=== PATIENT | female | born 1950 | race African-American/Black ===

== ENCOUNTER 2016-12-10 11:37 | Inpatient (IN) | payer OTHER ==
[2016-12-10 14:13] VITALS: BMI 32.2
--- NOTE | 2016-12-10 15:25 | HP ---
CIWA Score - CIWA Score Nausea/Vomitin Muscle Tremors: 3 Anxiety: 3 Agitation: 3 Paroxysmal Sweats: 3 Orientation: 0-Oriented Tacttile Disturbances: 2-Mild Itch/Numbness/Burn Auditory Disturbances: 2-Mild Harshness/Frighten Visual Disturbances: 0-None Headache: 2-Mild CIWA-Ar Total Score: 21 Admission ROS BHS - HPI Chief Complaint: i need help to stop using klonopin Allergies/Adverse Reactions: Allergies Allergy/AdvReac Type Severity Reaction Status Date / Time No Known Allergies Allergy Verified 12/10/16 15:16 History of Present Illness: this 66 years old black female with klonopin dependence ,seeking detox,last detox 1969 did not recall facility mmtp 150 mgs/day,last today 12/10/16 hepatitis c treated asthma type 2 dm longest period of sobriety 10 years Exam Limitations: No Limitations - Ebola screening Have you traveled outside of the country in the last 21 days: No Have you had contact with anyone from an Ebola affected area: No Have you been sick,other than usual withdrawal symptoms: No Do you have a fever: No - Review of Systems Constitutional: Loss of Appetite, Malaise, Night Sweats, Changes in sleep, Weakness EENT: reports: Tearing, Nose Congestion Respiratory: reports: No Symptoms reported, Other (asthma history) Cardiac: reports: No Symptoms Reported GI: reports: Diarrhea, Nausea, Vomiting, Abdominal cramping : reports: No Symptoms Reported Musculoskeletal: reports: Back Pain, Joint Pain, Muscle Pain, Joint Stiffness Integumentary: reports: Dryness Neuro: reports: Headache, Tremors Endocrine: reports: No Symptoms Reported Hematology: reports: No Symptoms Reported Psychiatric: reports: Agitated, Depressed Patient History - Patient Medical History Hx Anemia: No Hx Asthma: Yes (on albuterol inhaler) Hx Chronic Obstructive Pulmonary Disease (COPD): No Hx Cancer: No Hx Cardiac Disorders: No Hx Congestive Heart Failure: No Hx Hypertension: No Hx Hypercholesterolemia: No Hx Pacemaker: No HX Cerebrovascular Accident: No Hx Seizures: No Hx Dementia: No Hx Diabetes: Yes (type 2 on metfomin 500 mgs po bid) Hx Gastrointestinal Disorders: No Hx Liver Disease: Yes (hepatitis c treated) Hx Genitourinary Disorders: No Hx Sexually Transmitted Disorders: No Hx Renal Disease (ESRD): No Hx Thyroid Disease: No Hx Human Immunodeficiency Virus (HIV): No (last 11/02 negative) Hx Hepatitis C: Yes (treated) Hx Depression: No Hx Suicide Attempt: No Hx Bipolar Disorder: No Hx Schizophrenia: No Other Medical History: no suicidal ,no homicidal - Patient Surgical History Past Surgical History: Yes Hx Section: Yes (23 years ago) - PPD History Previous Implant?: Yes Documented Results: Negative w/o proof PPD to be Administered?: Yes - Reproductive History Patient is a Female of Child Bearing Age (11 -55 yrs old): No - Smoking Cessation Smoking history: Current every day smoker Have you smoked in the past 12 months: Yes Aproximately how many cigarettes per day: 3 Cigars Per Day: 0 Hx Chewing Tobacco Use: No Initiated information on smoking cessation: Yes 'Breaking Loose' booklet given: 12/10/16 - Substance & Tx. History Hx Alcohol Use: No Hx Substance Use: Yes Substance Use Type: Tranquilizers Hx Substance Use Treatment: Yes (in 1970 facility unknown) - Substances Abused Benzodiazepine (Klonopin) Route: Oral Frequency: Daily Amount used: 4mg Age of first use: 64 Date of Last Use: 12/09/16 Family Disease History - Family Disease History Family History: Denies Admission Physical Exam S - Vital Signs Vital Signs: Vital Signs - 24 hr 12/10/16 14:10 Temperature 97 F L Pulse Rate 67 Respiratory 20 Rate Blood Pressure 140/90 - Physical General Appearance: Yes: Moderate Distress, Tremorous, Irritable, Sweating, Anxious HEENTM: Yes: Normal ENT Inspection, DERREK, Pharynx Normal Respiratory: Yes: Within Normal Limits, Lungs Clear, Normal Breath Sounds Neck: Yes: Within Normal Limits, Supple, Trachea in good position Breast: Yes: Breast Exam Deferred Cardiology: Yes: Within Normal Limits, Regular Rhythm, Regular Rate, S1, S2 Abdominal: Yes: Within Normal Limits, Normal Bowel Sounds, Non Tender, Soft Genitourinary: Yes: Within Normal Limits Back: Yes: Muscle Spasm Musculoskeletal: Yes: full range of Motion, Back pain, Muscle Pain Extremities: Yes: Tremors Neurological: Yes: Within Normal Limits, real estate sales associate II-XII NML intact, Alert, Motor Strength 5/5 Integumentary: Yes: Dry Lymphatic: Yes: Within Normal Limits - Diagnostic (1) Uncomplicated sedative, hypnotic or anxiolytic withdrawal Current Visit: Yes Status: Acute (2) Methadone use disorder, mild, on maintenance therapy Current Visit: Yes Status: Acute (3) Asthma Current Visit: Yes Status: Acute (4) Anxiety and depression Current Visit: Yes Status: Acute (5) DM type 2 (diabetes mellitus, type 2) Current Visit: Yes Status: Acute (6) Syncope Current Visit: Yes Status: Acute [facility] Level of Care: Medically Managed Detox Regimen/Protocol: Librium S Breath Alcohol Content Breath Alcohol Content: 0 Urine Pregancy Test - Result Urine Test Results: Negative- NO Line Present Urine Drug Screen - Results Drug Screen Negative: No Urine Drug Screen Results: BZO-Benzodiazepines, MTD-Methadone, TCA-Tricyclic Antidepress
[2016-12-10] MEDS ORDERED: guaiFENesin/D-METHORPHAN HB 10 ML UNIT-DOSE CUPS PO PRN (15:46)
[2016-12-10] MEDS ORDERED: MAGNESIUM CITRATE 300 ML BOTTLE PO PRN (15:46)
[2016-12-10] MEDS ORDERED: P-EPHED 60MG/TRIPROLIDI 2.5MG TABLET PO PRN (15:46)
[2016-12-10] MEDS ORDERED: diazePAM 5 MG TABLET PO PRN (15:46)
[2016-12-10] MEDS ORDERED: LOPERAMIDE HCL 2 MG CAPSULE PO PRN (15:46)
[2016-12-10] MEDS ORDERED: MAG HYDROX/AL HYDROX/SIMETH 30 ML UNIT-DOSE CUP PO PRN (15:46)
[2016-12-10] MEDS ORDERED: hydrOXYzine PAMOATE 50 MG CAPSULE (FP) PO PRN (15:46)
[2016-12-10] MEDS ORDERED: MAGNESIUM HYDROX 2400MG/30ML ORAL SUSPENSION 30 ML CUP PO PRN (15:46)
[2016-12-10] MEDS ORDERED: MENTHOL/PHENOL 1 EACH UD MM PRN (15:46)
[2016-12-10] MEDS ORDERED: diazePAM 5 MG TABLET PO ONE (17:45)
[2016-12-10] MEDS: THIAMINE HCL 100 MG TABLET (FP) PO SCH (22:10)
[2016-12-10] MEDS: diazePAM 5 MG TABLET PO SCH (22:10)
[2016-12-10 22:28] LABS: URINE APPEARANCE SLCLOUDY; URINE BILIRUBIN NEGATIVE (NEGATIVE); URINE BLOOD NEGATIVE (NEGATIVE); URINE COLOR DKYELLOW; URINE GLUCOSE (UA) NEGATIVE (NEGATIVE); URINE KETONE TRACE (NEGATIVE); URINE NITRITE NEGATIVE (NEGATIVE); URINE UROBILINOGEN NEGATIVE mg/dL (0.2-1.0)
[2016-12-10 22:33] LABS: URINE PROTEIN 1+ (NEGATIVE)
[2016-12-10 23:51] LABS: URINE BACTERIA MANY /hpf (NONE SEEN); URINE WBC FEW /hpf (3-5)
[2016-12-11] MEDS: diazePAM 5 MG TABLET PO SCH ×3 (05:55→22:15)
[2016-12-11] MEDS: ACETAMINOPHEN 325 MG TABLET (FP) PO PRN (06:07)
--- NOTE | 2016-12-11 08:14 | CONSULT ---
[facility] Psychiatric Consult - Data Date of interview: 12/11/16 Admission source: [facility] Identifying data: This is 66 years old male with unlnown past psychiatric history, intoxicated with: Alcohol and Methadone Substance Abuse History: Urine Drug Screen Results: BZO-Benzodiazepines, MTD- Methadone, TCA-Tricyclic Antidepress. - Smoking Cessation. Smoking history: Current every day smoker. Have you smoked in the past 12 months: Yes. Aproximately how many cigarettes per day: 3. Cigars Per Day: 0. Hx Chewing Tobacco Use: No. Initiated information on smoking cessation: Yes. 'Breaking Loose' booklet given: 12/10/16. - Substance & Tx. History. Hx Alcohol Use: No. Hx Substance Use: Yes. Substance Use Type: Tranquilizers. Hx Substance Use Treatment: Yes (in 1970 facility unknown) Medical History: Asthma, DM-2, Syncope history, Psychiatric History: Patient reports unclear past psychiatric history, reports no psychiatric medications taking prior to admission Physical/Sexual Abuse/Trauma History: Denies Additional Comment: Urine Drug Screen Results: BZO-Benzodiazepines, MTD- Methadone, TCA-Tricyclic Antidepress. Observation. Detox Unit Care Protocol Mental Status Exam - Mental Status Exam Alert and Oriented to: Person Cognitive Function: Fair Patient Appearance: Unkempt Mood: Sad Affect: Flat Patient Behavior: Sedated Speech Pattern: Delayed Voice Loudness: Mildly Soft/Quiet Thought Process: Circumstantial Thought Disorder: Being Controlled Hallucinations: Denies Suicidal Ideation: Denies Homicidal Ideation: Denies Insight/Judgement: Fair Sleep: Difficulty falling asleep Appetite: Weight loss Muscle strength/Tone: Mild Hypotonicity Gait/Station: Shuffling Additional Comments: Observation. Detox Unit Care Protocol Psychiatric Findings - Problem List ([place] 1, 2,3) (1) Alcohol dependence with uncomplicated withdrawal Current Visit: Yes Status: Acute (2) Anxiety and depression Current Visit: Yes Status: Acute (3) Methadone use disorder, mild, on maintenance therapy Current Visit: Yes Status: Acute (4) Uncomplicated sedative, hypnotic or anxiolytic withdrawal Current Visit: Yes Status: Acute (5) Drug-induced mood disorder Current Visit: Yes Status: Acute - Initial Treatment Plan Initial Treatment Plan: Observation. Detox Unit Care Protocol
[2016-12-11] MEDS ORDERED: METHADONE HCL 10 MG TABLET PO SCH (08:45)
--- NOTE | 2016-12-11 09:16 | PN ---
S CIWA - CIWA Score Nausea/Vomitin Muscle Tremors: 3 Anxiety: 3 Agitation: 3 Paroxysmal Sweats: 1-Minimal Palms Moist Orientation: 0-Oriented Tacttile Disturbances: 1-Very Mild Itch/Numbness Auditory Disturbances: 1-Very Mild Visual Disturbances: 1-Very Mild Sensitivity Headache: 2-Mild CIWA-Ar Total Score: 18 BHS Progress Note (SOAP) Subjective: alert,irritable,anxious,interrupted sleep,tremor,pain in the body Objective: 12/11/16 09:10 Vital Signs Temperature 96.3 F L 12/11/16 06:29 Pulse Rate 66 12/11/16 06:29 Respiratory Rate 16 12/11/16 06:29 Blood Pressure 150/78 12/11/16 06:29 O2 Sat by Pulse Oximetry (%) ekg sinus bradycardia 55/min no chest pain,no sob.no dizziness Laboratory Last Values POC Glucometer 79 UNITS (()) 12/11/16 06:05 Urine Color Dkyellow 12/10/16 22:10 Urine Appearance Slcloudy 12/10/16 22:10 Urine pH 5.0 (5.0-8.0) 12/10/16 22:10 Urine Protein 1+ (NEGATIVE) H 12/10/16 22:10 Urine Glucose (UA) Negative (NEGATIVE) 12/10/16 22:10 Urine Ketones Trace (NEGATIVE) H 12/10/16 22:10 Urine Blood Negative (NEGATIVE) 12/10/16 22:10 Urine Nitrite Negative (NEGATIVE) 12/10/16 22:10 Urine Bilirubin Negative (NEGATIVE) 12/10/16 22:10 Urine Urobilinogen Negative mg/dL (0.2-1.0) 12/10/16 22:10 Urine WBC Few /hpf (3-5) 12/10/16 22:10 Ur Epithelial Cells Few /hpf (FEW) 12/10/16 22:10 Urine Bacteria Many /hpf (NONE SEEN) 12/10/16 22:10 labs pending 12/11/16 09:16 Assessment: withdrawal symptom Plan: continue detox
[2016-12-11] MEDS ORDERED: METHADONE HCL 40 MG DISPERSABLE TABLET ONE (09:55)
[2016-12-11] MEDS ORDERED: METHADONE HCL 10 MG TABLET ONE (09:56)
[2016-12-11 10:03] LABS: MEAN CELL VOLUME 87.7 fl (80-96); MEAN PLT VOLUME 8.5 fl (7.5-11.1); PLATELET COUNT 187 K/MM3 (134-434); WHITE BLOOD COUNT 9.9 K/mm3 (4.0-10.0)
[2016-12-11] MEDS: METHADONE 120 MG, METHADONE 30 MG PO SCH (10:12)
[2016-12-11] MEDS: PRENATAL VITAMINS W/ FOLIC ACID TABLET (FP) PO SCH (10:12)
[2016-12-11 10:39] LABS: ALBUMIN 3.5 g/dl (3.4-5.0); ANION GAP 4 (8-16); CALCIUM 8.7 mg/dL (8.5-10.1); CO2 33 mmol/L (21-32); GLUCOSE,RANDOM 71 mg/dL (74-106); SGOT/AST 14 U/L (15-37)
[2016-12-11 10:44] LABS: ALK PHOS 118 U/L (45-117); BILIRUBIN,TOTAL 0.4 mg/dL (0.2-1.0); SGPT/ALT 16 U/L (12-78)
--- NOTE | 2016-12-11 10:46 | EKG ---
Test Reason : Blood Pressure : / mmHG Vent. Rate : 054 BPM Atrial Rate : 054 BPM P-R Int : 156 ms QRS Dur : 076 ms QT Int : 482 ms P-R-T Axes : 070 002 002 degrees QTc Int : 457 ms SINUS BRADYCARDIA MINIMAL VOLTAGE CRITERIA FOR LVH, MAY BE NORMAL VARIANT BORDERLINE ECG NO PREVIOUS ECGS AVAILABLE Confirmed by KIRK MORALES MD ([id number]) on 12/11/2016 10:45:49 AM Referred By: Confirmed By:KIRK MORALES MD
[2016-12-11 10:47] LABS: URINE LEUK ESTERASE 1+ (NEGATIVE)
[2016-12-11] MEDS ORDERED: PNEUMOC 13-VAL CONJ-DIP CRM/PF 0.5 ML DISP.SYRIN IM ONE (12:00)
[2016-12-11] MEDS ORDERED: PNEUMOCOCCAL 23 VACCINE 0.5 ML VIAL IM ONE (12:00)
[2016-12-11] MEDS: IBUPROFEN 400 MG TABLET (FP) PO PRN (14:02)
[2016-12-11] MEDS: THIAMINE HCL 100 MG TABLET (FP) PO SCH (22:15)
[2016-12-11] MEDS: diphenhydrAMINE HCL 50 MG CAPSULE PO PRN (22:16)
[2016-12-12] MEDS ORDERED: METHADONE HCL 40 MG DISPERSABLE TABLET ONE (04:13)
[2016-12-12] MEDS ORDERED: METHADONE HCL 10 MG TABLET ONE (04:14)
[2016-12-12] MEDS: METHADONE 120 MG, METHADONE 30 MG PO SCH (05:48)
[2016-12-12] MEDS: diazePAM 5 MG TABLET PO SCH ×2 (10:05→22:15)
[2016-12-12] MEDS: PRENATAL VITAMINS W/ FOLIC ACID TABLET (FP) PO SCH (10:06)
--- NOTE | 2016-12-12 10:32 | PN ---
BHS CIWA - CIWA Score Nausea/Vomitin Muscle Tremors: 3 Anxiety: 2 Agitation: 2 Paroxysmal Sweats: 1-Minimal Palms Moist Orientation: 0-Oriented Tacttile Disturbances: 1-Very Mild Itch/Numbness Auditory Disturbances: 1-Very Mild Visual Disturbances: 0-None Headache: 2-Mild CIWA-Ar Total Score: 15 BHS Progress Note (SOAP) Subjective: ALERT,IRRITABLE,ANXIOUS,INTERRUPTED SLEEP,TREMOR Objective: 12/12/16 10:31 Vital Signs Temperature 97.7 F 12/12/16 06:00 Pulse Rate 76 12/12/16 07:30 Respiratory Rate 18 12/12/16 07:30 Blood Pressure 125/93 12/12/16 07:30 O2 Sat by Pulse Oximetry (%) BGM IS 70 Assessment: 12/12/16 10:31 WITHDRAWAL SYMPTOM Plan: CONTINUE DETOX,BGM MONITORING
[2016-12-12] MEDS: ACETAMINOPHEN 325 MG TABLET (FP) PO PRN (19:08)
[2016-12-12] MEDS: diphenhydrAMINE HCL 50 MG CAPSULE PO PRN (22:15)
[2016-12-12] MEDS: THIAMINE HCL 100 MG TABLET (FP) PO SCH (22:15)
[2016-12-13] MEDS ORDERED: METHADONE HCL 40 MG DISPERSABLE TABLET ONE (04:39)
[2016-12-13] MEDS ORDERED: METHADONE HCL 10 MG TABLET ONE (04:40)
[2016-12-13] MEDS: METHADONE 120 MG, METHADONE 30 MG PO SCH (05:05)
[2016-12-13] MEDS: diazePAM 5 MG TABLET PO SCH ×2 (10:06→22:02)
[2016-12-13] MEDS: PRENATAL VITAMINS W/ FOLIC ACID TABLET (FP) PO SCH (10:06)
--- NOTE | 2016-12-13 10:17 | PN ---
S Progress Note (SOAP) Subjective: ALERT,IRRITABLE,ANXIOUS,INTERRUPTED SLEEP Objective: 12/13/16 10:15 Vital Signs Temperature 98.1 F 12/13/16 06:00 Pulse Rate 66 12/13/16 06:00 Respiratory Rate 18 12/13/16 06:00 Blood Pressure 145/95 12/13/16 06:00 O2 Sat by Pulse Oximetry (%) 12/13/16 10:24 GLUCOSE IS 77 Assessment: 12/13/16 10:24 WITHDRAWAL SYMPTOM Plan: CONTINUE DETOX,GLUCERNA 1 CAN PO BID,DISCHARGE IN AM
[2016-12-13] MEDS: IBUPROFEN 400 MG TABLET (FP) PO PRN (14:44)
--- NOTE | 2016-12-13 18:15 | PN ---
[facility] Progress Note Note: Psychiatry Attending's note : Asked to see this patient. Reason : insomnia. Chart reviewed. Dr Lockwood's note is appreciated. Met with the patient. Educated about sleep hygiene. Ambien 5 mg po hs prn. Side effects/benefits discussed. Patient agrees with this careplan. Nursing staff made aware.
[2016-12-13] MEDS ORDERED: ZOLPIDEM TARTRATE 5 MG TABLET PO PRN (18:16)
[2016-12-13] MEDS: THIAMINE HCL 100 MG TABLET (FP) PO SCH (22:02)
[2016-12-14] MEDS ORDERED: METHADONE HCL 10 MG TABLET ONE (04:40)
[2016-12-14] MEDS ORDERED: METHADONE HCL 40 MG DISPERSABLE TABLET ONE (04:40)
[2016-12-14] MEDS: METHADONE 120 MG, METHADONE 30 MG PO SCH (05:07)
[2016-12-14 06:21] VITALS: BP 133/79; PULSE 67; TEMP 97.7
--- NOTE | 2016-12-14 08:44 | PN ---
S Progress Note Note: ALERT,NO COMPLAINT REPEAT BGM IS 115 STABLE FOR DISCHARGE,FOLLOW UP WITH AFTER CARE PROGRAM ARRANGEMENT
--- NOTE | 2016-12-14 08:48 | DS ---
[facility] Detox Discharge Summary Admission Date: 12/10/16 Discharge Date: 12/14/16 - History Present History: Alcohol Dependence, MMTP Additional Comments: FOLLOW UP WITH AFTER CARE PROGRAM ARRANGEMENT Pertinent Past History: ASTHMA TYPE 2 DM SYNCOPE ANXIETY AND DEPRESSION - Physical Exam Results Vital Signs: Vital Signs Temperature 97.7 F 12/14/16 06:20 Pulse Rate 67 12/14/16 06:20 Respiratory Rate 18 12/14/16 06:20 Blood Pressure 133/79 12/14/16 06:20 O2 Sat by Pulse Oximetry (%) Pertinent Admission Physical Exam Findings: WITHDRAWAL SYMPTOM - Treatment Hospital Course: Detox Protocol Followed, Detoxed Safely, Responded well, Discharged Condition Good Patient has Accepted a Rehab Referral to: DECLINED - Medication Discharge Medications: Ambulatory Orders NK [No Known Home Medication] 12/10/16 - Diagnosis (1) Uncomplicated sedative, hypnotic or anxiolytic withdrawal Current Visit: Yes Status: Acute (2) Methadone use disorder, mild, on maintenance therapy Current Visit: Yes Status: Acute (3) Asthma Current Visit: Yes Status: Acute (4) Anxiety and depression Current Visit: Yes Status: Acute (5) DM type 2 (diabetes mellitus, type 2) Current Visit: Yes Status: Acute (6) Syncope Current Visit: Yes Status: Acute - AMA Did Patient Leave Against Medical Advice: No
[2016-12-14] MEDS ORDERED: diazePAM 5 MG TABLET PO SCH (10:00)
== END 2016-12-14 09:00 | disposition home or self-care (01) | DRG 773 ==
LOC: YASAS 11:37 → Y6N 17:12
PROVIDERS: ADMIT Internal Medicine; ATTEND Internal Medicine
PROC: HZ2ZZZZ Detoxification Services for Substance Abuse Treatment (ICD-10-PCS; principal; 2016-12-10)
DX: F13.230 Sedative, hypnotic or anxiolytic dependence with withdrawal, uncomplicated (principal); F11.20 Opioid dependence, uncomplicated; F17.210 Nicotine dependence, cigarettes, uncomplicated; F41.8 Other specified anxiety disorders; F19.24 Other psychoactive substance dependence with psychoactive substance-induced mood disorder; J45.909 Unspecified asthma, uncomplicated; E11.9 Type 2 diabetes mellitus without complications; R00.1 Bradycardia, unspecified; B18.2 Chronic viral hepatitis C; Z79.84 Long term (current) use of oral hypoglycemic drugs; Z86.79 Personal history of other diseases of the circulatory system
CPT/HCPCS: 36415; 80053; 81003; 81015; 85027; 86593; 90732; 93005; 93010; G0009